=== PATIENT | female | born 1990 | race Caucasian/White ===

== ENCOUNTER → 2023-09-01 09:59 | Outpatient (REF) | payer BC, SELFPAY | LOC: RAD 09:59 | PROVIDERS: ATTENDING PHYSICIAN Obstetrics & Gynecology; FAMILY PHYSICIAN Family Medicine Sports Medicine | DX: Z31.41 Encounter for fertility testing (principal) | CPT/HCPCS: 58340; 74740 ==

== ENCOUNTER → 2023-11-26 14:55 | Outpatient (REF) | payer BC, SELFPAY | LOC: RAD 14:55 | PROVIDERS: ATTENDING PHYSICIAN Obstetrics & Gynecology; FAMILY PHYSICIAN Family Medicine Sports Medicine | DX: O26.859 Spotting complicating pregnancy, unspecified trimester (principal) | CPT/HCPCS: 76801 ==

== ENCOUNTER 2024-05-16 18:01 | Observation (INO) | payer BC, SELFPAY ==
[2024-05-16 18:19] VITALS: BP 137/86; BMI 32.1
== END 2024-05-16 19:22 | disposition home or self-care (01) ==
LOC: LDRP 18:01
PROVIDERS: ADMITTING PHYSICIAN Obstetrics & Gynecology; FAMILY PHYSICIAN Family Medicine Sports Medicine
DX: O36.8330 Maternal care for abnormalities of the fetal heart rate or rhythm, third trimester, not applicable or unspecified (principal); Z3A.34 34 weeks gestation of pregnancy
CPT/HCPCS: 59025; G0378

== ENCOUNTER 2024-06-22 14:44 | Inpatient (IN) | payer OTHER, SELFPAY ==
[2024-06-22 14:50] VITALS: BP 140/96; BMI 33.9
[2024-06-22] MEDS: LR IV (15:00)
[2024-06-22] MEDS: LR 500 IV (15:00)
[2024-06-22 15:34] LABS: % Basophils 0.1 % (0-2); % Eosinophils 0.2 % (0-6); % Immature Granulocytes 0.4 % (0-0.5); % Lymphocytes 22.9 % (20.5-51.1); % Monocytes 8.1 % (1.7-9.3); % Neutrophils 68.3 % (42.2-75.2); Absolute Lymphocytes 2.1 10^3/uL (1.2-3.4); Absolute Monocytes 0.8 10^3/uL (0.1-0.6); Absolute Neutrophils 6.3 10^3/uL (1.4-6.5); Hematocrit 37.2 % (37.0-47.0); Mean Corp Hgb Conc. 34.9 g/dL (33.0-37.0); Mean Corpuscular Volume 85.7 fL (81.0-99.0); Mean Platelet Volume 11.9 fL (7.4-10.4); Nucleated Red Blood Cells % 0 %; Platelet Count 166 10^3/uL (130-400); Red Blood Cell Count 4.34 10^6/uL (4.20-5.40); White Blood Cell Count 9.3 10^3/uL (4.8-10.8)
[2024-06-22 15:47] LABS: ALT (SGPT) 26 U/L (0-35); AST (SGOT) 31 U/L (14-36); Albumin 3.7 g/dl (3.5-5.0); Alkaline Phosphatase 233 U/L (38-126); Blood Urea Nitrogen 9 mg/dl (7-17); Carbon Dioxide 20 mmol/L (22-30); Chloride 105 mmol/L (98-107); Estimated Creatinine Clearance > 125 ml/min; Glucose 110 mg/dl (70-99); Potassium 4.1 mmol/L (3.5-5.1); Sodium 137 mmol/L (135-145); Total Bilirubin 0.5 mg/dl (0.2-1.3); Total Protein 6.2 g/dl (6.3-8.2); eGFR > 60.00
[2024-06-22] MEDS: TYLENOL 1000 MG PO (15:57)
[2024-06-22 15:58] LABS: Protein/creatinine Ratio 0.2; Urine Protein 11 mg/dl
[2024-06-22] MEDS: LR 1000 IV (16:00)
[2024-06-22] MEDS: BENADRYL 25 MG PO (16:13)
[2024-06-22] MEDS: CYTOTEC VAG (16:14)
[2024-06-22] MEDS: CYTOTEC 50 MICROGRAM VAG (18:04)
[2024-06-22] MEDS: CYTOTEC 25 MICROGRAM PO (22:14)
[2024-06-23] MEDS: LR 1000 IV ×3 (02:00→15:10)
[2024-06-23] MEDS: CYTOTEC PO ×2 (03:26→06:02)
[2024-06-23] MEDS: STADOL 1 MG IV ×2 (03:26→09:08)
[2024-06-23] MEDS: EFFEXOR 75 MG PO (08:09)
[2024-06-23] MEDS: PRENATAL PLUS 1 TABLET PO (08:09)
[2024-06-23] MEDS: SUBLIMAZE 100 MCG EPIDURAL (11:20)
[2024-06-23] MEDS: FENTANYL/BUPIVACAINE 100 EPIDURAL ×2 (11:21→20:07)
[2024-06-23] MEDS: PITOCIN 30 UNITS/NSS 500 ML IV (15:10)
[2024-06-24] MEDS: TYLENOL 650 MG PO ×2 (08:05→17:30)
[2024-06-24] MEDS: PRENATAL PLUS 1 TABLET PO (08:05)
[2024-06-24] MEDS: MOTRIN 600 MG PO ×2 (08:05→17:30)
[2024-06-24] MEDS: EFFEXOR 75 MG PO (08:06)
[2024-06-24] MEDS: SENOKOT-S 1 TABLET PO (22:07)
[2024-06-25 06:12] LABS: Hematocrit 30.8 % (37.0-47.0); Hemoglobin 10.6 g/dL (12.0-16.0)
[2024-06-25] MEDS: EFFEXOR 75 MG PO (07:44)
[2024-06-25] MEDS: MOTRIN 600 MG PO ×2 (07:44→20:39)
[2024-06-25] MEDS: TYLENOL 650 MG PO ×2 (07:47→20:39)
[2024-06-25] MEDS: PRENATAL PLUS 1 TABLET PO (07:47)
[2024-06-25] MEDS: SENOKOT-S 1 TABLET PO (22:04)
[2024-06-26] MEDS: EFFEXOR 75 MG PO (07:50)
[2024-06-26] MEDS: PRENATAL PLUS 1 TABLET PO (07:50)
[2024-06-26] MEDS: MOTRIN 600 MG PO (08:02)
[2024-06-26] MEDS: TYLENOL 650 MG PO (08:02)
[2024-06-28 11:40] LABS: Syphilis/T. pallidum Ab Reflex Negative (Negative)
== END 2024-06-26 14:52 | disposition home or self-care (01) | DRG 807 ==
LOC: LDRP 14:44
PROVIDERS: Obstetrics & Gynecology; ADMITTING PHYSICIAN Obstetrics & Gynecology
PROC: 3E0P7VZ Introduction of Hormone into Female Reproductive, Via Natural or Artificial Opening (ICD-10-PCS; 2024-06-22)
PROC: 10E0XZZ Delivery of Products of Conception, External Approach (ICD-10-PCS; 2024-06-24)
PROC: 0UQMXZZ Repair Vulva, External Approach (ICD-10-PCS; 2024-06-24)
DX: O13.4 Gestational [pregnancy-induced] hypertension without significant proteinuria, complicating childbirth (principal); Z37.0 Single live birth; Z3A.39 39 weeks gestation of pregnancy; O70.0 First degree perineal laceration during delivery; F41.9 Anxiety disorder, unspecified; O99.344 Other mental disorders complicating childbirth
CPT/HCPCS: 88307; 80053; 82570; 84156; 85014; 85018; 85025; 86780; 86850; 86900; 86901